=== PATIENT | female | born 2000 | race Caucasian/White ===

== ENCOUNTER → 2018-08-05 13:40 | Outpatient (CLI) | payer BC ==
[2012-01-08 11:34] VITALS: BMI 29.3
== END | disposition home or self-care (01) ==
LOC: D.CT 13:40
DX: G44.301 Post-traumatic headache, unspecified, intractable (principal)

== ENCOUNTER 2019-05-06 21:39 | Emergency (ER) | payer BC ==
[~2019-05-06] VITALS: Ht 165.1 cm; Wt 65.5 kg
[2019-05-06 22:01] VITALS: Ht 165.1 cm; Wt 65.5 kg
[2019-05-06] MEDS ORDERED: LINZESS145 MCG PO (22:02)
[2019-05-06 22:58] LABS: BASOPHILS 0.1 % (0-2); EOSINOPHILS 0.3 % (0-7); HEMATOCRIT 31.7 % (36.0-48.0); HEMOGLOBIN 10.3 g/dL (12-16); IMMATURE GRANULOCYTES 0.3 % (0-5); LYMPHOCYTES 14.7 % (15-50); MCHC 32.5 g/dL (31.0-37.0); MCV 76.9 fL (80.0-100.0); MEAN PLATELET VOLUME 9.1 fL (7.4-10.4); NEUTROPHILS 77.6 % (40-80); PLATELET COUNT 354 10x3/uL (130-400); RBC 4.12 10x6/uL (4.00-5.40); RDW 15.6 % (11.5-14.5)
[2019-05-06 23:00] LABS: APPEARANCE CLEAR (CLEAR); COLOR YELLOW (YELLOW); NITRITE NEGATIVE (NEGATIVE); PROTEIN TRACE mg/dL (NEGATIVE)
[2019-05-06 23:01] LABS: BILIRUBIN NEGATIVE (NEGATIVE); GLUCOSE NEGATIVE (NEGATIVE); KETONE MODERATE mg/dL (NEGATIVE); UROBILINOGEN NORMAL (NORMAL)
[2019-05-06 23:02] LABS: BACTERIA FEW /hpf (NONE SEEN); EPITHELIAL CELLS 0-5 /hpf (0-5); MUCUS <1+ /lpf (NONE SEEN); RED CELLS - URINE 0-5 /hpf (0-5); WHITE CELLS - URINE 0-5 /hpf (0-5)
[2019-05-06 23:04] LABS: HCG URINE NEGATIVE (NEGATIVE)
[2019-05-06 23:18] LABS: ALBUMIN 3.2 g/dL (3.4-5.0); ALKALINE PHOSPHATASE 91 U/L (46-116); ALT (SGPT) 33 U/L (10-68); BILIRUBIN - TOTAL 0.24 mg/dL (0.2-1.3); CALC OSMOLALITY 277 mosm/kg (275-300); CALCIUM 9.4 mg/dL (8.5-10.1); CARBON DIOXIDE 30.8 mmol/L (21.0-32.0); CHLORIDE - SERUM 102 mmol/L (98-107); CREATININE - SERUM 0.7 mg/dL (0.6-1.3); GLUCOSE 86 mg/dL (74-106); POTASSIUM - SERUM 3.7 mmol/L (3.5-5.1); PROTEIN - SERUM 7.7 g/dL (6.4-8.2); SODIUM 141 mmol/L (136-145); UREA NITROGEN 6 mg/dL (7-18); eGFR NON AFRICAN AMERICAN > 90 mL/min (90-120)
[2019-05-06 23:23] LABS: AMYLASE - SERUM 32 U/L (25-115); LIPASE 99 U/L (73-393); TROPONIN-I < 0.017 ng/mL (0.000-0.060)
[2019-05-06 23:55] LABS: HCG SERUM NEGATIVE (NEGATIVE)
[2019-05-07] MEDS ORDERED: CHRONULAC30 ML PO (00:18)
[2019-05-07 00:42] VITALS: BP 132/79
== END 2019-05-07 00:39 | disposition home or self-care (01) ==
LOC: D.ER 21:39
PROVIDERS: Family Medicine
DX: K59.09 Other constipation (principal)

== ENCOUNTER 2019-05-09 00:33 | Emergency (ER) | payer BC ==
[~2019-05-09] VITALS: Ht 165.1 cm; Wt 65.9 kg
[~2019-05-09 00:33] MED LIST: CHRONULAC30 ML PO; LINZESS145 MCG PO
[2019-05-09 00:41] VITALS: Ht 165.1 cm; Wt 65.9 kg
[2019-05-09] MEDS ORDERED: MIRALAX17 GM PO (01:39)
[2019-05-09 02:09] VITALS: BP 147/97
== END 2019-05-09 02:09 | disposition home or self-care (01) ==
LOC: D.ER 00:33
DX: K59.00 Constipation, unspecified (principal)